=== PATIENT | male | born 1940 | race Caucasian/White ===

== ENCOUNTER 2017-11-05 10:24 | Observation (INO) | payer MEDICARE, OTHER ==
[2017-11-05] MEDS ORDERED: ASPIRIN 81 MG TAB.CHEW ONE (10:32)
[2017-11-05] MEDS ORDERED: NITROGLYCERIN 0.4 MG/TAB BTL SL PRN (10:32)
[2017-11-05] MEDS ORDERED: ASPIRIN 81 MG TAB.CHEW PO ONE (10:32)
--- NOTE | 2017-11-05 10:48 | ERNOTE ---
Chest Pain/Cardiac HPI Date of Service: 11/05/17 Time Seen by Provider: 11/05/17 10:29 Source: patient Exam Limitations: no limitations Immunizations: IMMUNIZATION HX Immunizations Up to Date Yes History of Influenza Vaccine Yes Hx Pneumococcal Vaccination Yes Allergies/Adverse Reactions: Allergies codeine phosphate [From Codeine Phosphate Soluble] Allergy (Verified 11/05/17 10 :37) penicillin G Allergy (Verified 11/05/17 10:37) sulfadiazine [Sulfadiazine] Allergy (Verified 11/05/17 10:37) Home Medications: HOME MEDICATIONS Albuterol Sulfate [Ventolin Hfa] 18 gm IH Q4H PRN 11/12/12 [Last Taken Unknown] Atenolol [Tenormin] 25 mg PO DAILY 11/12/12 [Last Taken Unknown] Bimatoprost [Lumigan 0.03% Ophth Solution] 2.5 ml OP DAILY 11/12/12 [Last Taken Unknown] Bupropion HCl [Buproban] 150 mg PO DAILY 11/12/12 [Last Taken Unknown] Cyanocobalamin (Vitamin B-12) [Vitamin B-12] 100 mcg PO DAILY 11/12/12 [Last Taken Unknown] Fluticasone Propionate [Flonase] 16 gm NS BID PRN 11/12/12 [Last Taken Unknown] Fluticasone/Salmeterol [Advair 250-50 Diskus] 1 each IH BID 11/12/12 [Last Taken Unknown] Gabapentin [Gabapentin (Neurontin)] 300 mg PO BID 11/12/12 [Last Taken Unknown] Garlic [Odorless Garlic] 500 mg PO DAILY 11/12/12 [Last Taken Unknown] Multivitamin [Multivitamins] 1 each PO BID 11/12/12 [Last Taken Unknown] [place]-3 Fatty Acids/Fish Oil [[place] 3 1,000 mg Softgel] 1 each PO DAILY [Last Taken Unknown] Pantoprazole Sodium [Protonix] 40 mg PO DAILY 11/12/12 [Last Taken Unknown] Pregabalin [Lyrica] 100 mg PO TID 11/12/12 [Last Taken Unknown] Ubidecarenone [Coenzyme Q10] 100 mg PO DAILY 11/12/12 [Last Taken Unknown] HYDROcodone/ACETAMINOPHEN [[place] 5-325 Tablet] 1 - 2 tab PO QID PRN #30 tab 11/14 [Last Taken Unknown] Von 06/11/15 [Last Taken Unknown] Narrative: Pt. comes in with c/o chest pressure for 5 hours. Pt. states that he was SOB, and diaphoretic as well. Pt. denies any radiation of the pain. Pt. has a hx of anteriolateral VT and was treated medically and also has a hx of COPD which he denies any recent problems of. Pt. denies any alleviating or aggravating factors. Pt. denies any prehospital treatment. Timing: constant, other - improved with nitro Severity/Quality: pressure Location: substernal Chest Pain Radiation: no radiation Activities at Onset: sleep Modifying Factors - Improves: Present: nitroglycerin Modifying Factors - Worsens: Present: nothing Nitro Today/Relief: 0.4 mg x 1, provided by EMS Aspirin Treatment Today: no aspirin today Associated Symptoms: Present: shortness of breath, diaphoresis Prior Chest Pain/Cardiac Workup: Reports: prior chest pain, heart attack, cardiac cath Prior Treatment: Reports: treated by physician Review of Systems - Review of Systems Constitutional: Present: no symptoms reported. Absent: fever, chills, weakness , fatigue, malaise EYE: Present: no symptoms reported ENT: Present: no symptoms reported. Absent: nose pain, nose congestion, nasal drainage, sore throat Respiratory: Present: shortness of breath. Absent: cough, wheezing Cardiology: Present: chest pain. Absent: palpitations, edema Gastrointestinal/Abdominal: Present: no symptoms reported. Absent: nausea, vomiting, diarrhea Genitourinary: Present: no symptoms reported. Absent: frequency, decreased urinary output Musculoskeletal: Present: no symptoms reported. Absent: back pain, joint pain Skin: Present: no symptoms reported. Absent: rash, change in hair/nails Neurological: Present: no symptoms reported. Absent: headache, dizziness/light- headedness, numbness, tingling All Other Systems: All systems neg except as marked - Patient's Past Medical History Patient History - Medical: GERD, Kidney stone Patient History - Cardiac/Respiratory: COPD, Myocardial Infarction Patient History - Cancer: No Hx of Cancer Patient History - Surgical Procedures: No surgical history - Social History Smoking Status: Current every day smoker Have you smoked in the past 12 months: Yes Do you dip or chew tobacco: Yes - Immunizations Immunizations Up to Date: Yes Hx Pneumococcal Vaccination: Yes History of Influenza Vaccine: Yes Physical Exam - Physical Exam General Appearance: Present: wd/wn, alert, no apparent distress Head Exam: Present: normal inspection, no evidence of injury Eye Exam: Normal inspection: bilateral, PERRL: bilateral, EOMI: bilateral Ears, Nose, Throat: Present: normal ENT inspection, normal pharynx Neck: Present: normal inspection, nontender, supple, full range of motion. Absent: lymphadenopathy (R), lymphadenopathy (L) Respiratory: Present: no respiratory distress, normal breath sounds, no accessory muscle use, chest nontender, lungs clear Cardiovascular/Chest: Present: regular rate, rhythm, normal peripheral pulses, systolic murmur Gastrointestinal/Abdominal: Present: normal bowel sounds, nontender, nondistended, soft, no organomegaly, other - corpulent Back Exam: Present: normal inspection, normal range of motion, no CVA tenderness , no vertebral tenderness Extremity Exam: Present: normal inspection, non-tender, normal range of motion, no edema Neurological Exam: Present: alert, oriented, normal mood/affect, no motor/ sensory deficits Skin Exam: Present: normal color, warm/dry. Absent: pallor, skin rash ED Progress - Date and Time Seen: Date and Time: 11/05/17 12:[address] Aldana he accepts pt and he denies any questions or new orders - Results and Orders Patient's Lab Results:: I have reviewed the patient's lab results. Results and Orders: Abnormal Lab Results 11/05/17 11/05/17 11/05/17 Range/Units 10:32 10:40 11:23 WBC 19.1 H (4.0-10.5) K/mm3 RBC 4.23 L (4.7-6.0) M/mm3 Hgb 13.1 L (13.5-18.0) gm/dL Hct 39.1 L (42.0-52.0) % MPV 11.8 H (6.0-9.5) fl Immature Gran % (Auto) 1.00 H (0.001-0.429) % Immature Gran # (Auto) 0.19 H (0.000-0.0310) K/mm3 Neutrophils % 91.6 H (42-75.0) % Lymphocytes % 3.6 L (20-51) % Neutrophils # 17.5 H (1.3-6.0) K/mm3 Lymphocytes # 0.7 L (1.5-3.5) k/mm3 Potassium 5.0 H (3.4-4.6) mmol/L Anion Gap 16.1 H (6.8-13.8) mmol/L Est GFR (Non-Af Amer) 55 L (60-130) mL/min Random Glucose 261 H (70-110) mg/dL Hemoglobin A1c 6.5 H (4.00-6.0) % Pt. receives steroid injection in knee yesterdayfell that this could be contributing to abnormal lab values. - Vital Signs Patient's Vital Signs:: I have reviewed the patient's vital signs. Vital Signs: Vital Signs 11/05/17 10:30 Temperature 37.4 C Pulse Rate 90 Respiratory 18 Rate Blood Pressure 170/76 O2 Sat by Pulse 96 Oximetry - EKG EKG: nonspecific ST T wave changes, changed from - 11/05/2012, other - 1 mm increase in V1 anteriolateral VT hx EKG read: Reviewed by me EKG Comments: Interp by Dr Calderon - X-Ray X-Ray #1 X-Ray: chest Interpretation: Reviewed by me X-ray Comments: chronic changes no acute - Progress/Reassessment Progress:: Unchanged Departure Clinical Impression: Hyperkalemia Chest pain Qualifiers: Chest pain type: other chest pain Qualified Code(s): R07.89 - Other chest pain ; R07.8 - Other chest pain - Departure Disposition: [facility] Condition: Fair
[2017-11-05 10:50] LABS: Hematocrit 39.1 % (42.0-52.0); Hemoglobin 13.1 gm/dL (13.5-18.0); Mean Cell Volume 92.4 fl (78-100); Mean Corpuscular Hgb Conc 33.5 g/dl (32-36); Mean Platelet Volume 11.8 fl (6.0-9.5); Neutrophil # 17.5 K/mm3 (1.3-6.0); Neutrophil % 91.6 % (42-75.0); Platelet Count 206 K/mm3 (150-450); Red Blood Count 4.23 M/mm3 (4.7-6.0); Red Cell Distribution Width 13.2 % (11.5-14.0); White Blood Count 19.1 K/mm3 (4.0-10.5)
[2017-11-05 10:56] LABS: Prothrombin Time (Patient) 9.9 Seconds (9.0-11.0)
[2017-11-05 10:57] LABS: INR 0.99 INR (0.90-1.10); Partial Thrombolplastin Time 24.1 Seconds (24-32)
[2017-11-05 11:02] LABS: Albumin * 3.8 gm/dl (3.4-5.0); Anion Gap 16.1 mmol/L (6.8-13.8); BUN/Creatinine Ratio 17.2 (9.0-21.6); Calcium * 9.3 mg/dL (7.9-10.9); Carbon Dioxide 24.9 mmol/L (24-32.6); Total Protein 7.7 gm/dL (6.2-8.2)
[2017-11-05 11:03] LABS: Bilirubin, Total 0.2 mg/dL (0.0-1.1); Ca. Corrected For Albumin 9.1 mg/dL (8.4-10.2); Troponin I 0.07 ng/ml (0.00-0.10)
[2017-11-05 11:29] LABS: Hemoglobin A1C 6.5 % (4.00-6.0)
[2017-11-05] MEDS ORDERED: SODIUM POLYSTYRENE SULFON/SORB 15 G/60 ML BTL PO ONE ×2 (11:54→11:57)
[2017-11-05] MEDS ORDERED: NORMAL SALINE 1,000 ML IV ONE (11:58)
[2017-11-05] MEDS ORDERED: SODIUM POLYSTYRENE SULFON/SORB 15 G/60 ML BTL ONE (12:04)
[2017-11-05] MEDS ORDERED: ALBUTEROL SULFATE 2.5 MG/0.5 ML VIAL.NEB IH PRN ×2 (13:14→17:39)
[2017-11-05] MEDS ORDERED: HYDROcodone/ACETAMINOPHEN 1 EACH TABLET PO PRN (13:14)
--- NOTE | 2017-11-05 13:14 | HP ---
Chief Complaint - Chief Complaint Date of Service: 11/05/17 Time of Service: 13:02 Chief Complaint: chest pain History of Present Illness: Nick Guillen, is a 76-year-old white male, with previous medical history of myocardial infarction, diabetes mellitus type 2, peripheral neuropathy, hyperlipidemia, gastroesophageal reflux disease who was admitted on 11/05/2017 because of chest pain. Early this morning, the patient went deer hunting and when he came back to the house he felt chest pain.He described it as pressure- like, 5/10, nonradiating and not associated with diaphoresis or nausea or vomiting. He thought it was just because his blood sugar was high as he just had a steroid injection of his knee the day before. When he took his blood pressure it was 190/88 and so he called EMS. They gave him nitroglycerin and his chest pain went away by the time he got to the ER. His first set of cardiac enzyme was within normal limits. His EKG showed normal sinus rhythm with anteroseptal myocardial infarction of indeterminate name . He was then admitted under our chest pain protocol and is currently chest pain-free. - Patient's Past Medical History Patient History - Medical: GERD, Kidney stone Patient History - Cardiac/Respiratory: COPD, Myocardial Infarction Patient History - Cancer: No Hx of Cancer Patient History - Surgical Procedures: No surgical history - Social History Smoking Status: Current every day smoker Have you smoked in the past 12 months: Yes Do you dip or chew tobacco: Yes - Immunizations Immunizations Up to Date: Yes Hx Pneumococcal Vaccination: Yes History of Influenza Vaccine: Yes Review Of Systems (GEN) - Review of Systems Generalized/Overall Review: Absent: Weakness, Chills, Fever Respiratory: Absent: Cough, Shortness of Breath, Orthopnea Cardiac: Present: Chest Pain - resolved now. Absent: Edema, Palpitations Abdominal: Absent: Nausea, Vomiting Genitourinary: Absent: Urgency, Frequency Musculoskeletal: Present: Joint Pain Immunizations: IMMUNIZATION HX Immunizations Up to Date Yes History of Influenza Vaccine Yes Hx Pneumococcal Vaccination Yes Allergies/Adverse Reactions: Allergies Allergy/AdvReac Type Severity Reaction Status Date / Time codeine phosphate Allergy Verified 11/05/17 10:37 [From Codeine Phosphate Soluble] penicillin G Allergy Verified 11/05/17 10:37 sulfadiazine [Sulfadiazine] Allergy Verified 11/05/17 10:37 Home Medications: HOME MEDICATIONS Albuterol Sulfate [Ventolin Hfa] 18 gm IH Q4H PRN 11/12/12 [Last Taken Unknown] Atenolol [Tenormin] 25 mg PO DAILY 11/12/12 [Last Taken Unknown] Bimatoprost [[place] 0.03% Ophth Solution] 2.5 ml OP DAILY 11/12/12 [Last Taken Unknown] Bupropion HCl [Buproban] 150 mg PO DAILY 11/12/12 [Last Taken Unknown] Cyanocobalamin (Vitamin B-12) [Vitamin B-12] 100 mcg PO DAILY 11/12/12 [Last Taken Unknown] Fluticasone Propionate [Flonase] 16 gm NS BID PRN 11/12/12 [Last Taken Unknown] Fluticasone/Salmeterol [Advair 250-50 Diskus] 1 each IH BID 11/12/12 [Last Taken Unknown] Gabapentin [Gabapentin (Neurontin)] 300 mg PO BID 11/12/12 [Last Taken Unknown] Garlic [Odorless Garlic] 500 mg PO DAILY 11/12/12 [Last Taken Unknown] Multivitamin [Multivitamins] 1 each PO BID 11/12/12 [Last Taken Unknown] [place]-3 Fatty Acids/Fish Oil [[place] 3 1,000 mg Softgel] 1 each PO DAILY [Last Taken Unknown] Pantoprazole Sodium [Protonix] 40 mg PO DAILY 11/12/12 [Last Taken Unknown] Pregabalin [Lyrica] 100 mg PO TID 11/12/12 [Last Taken Unknown] Ubidecarenone [Coenzyme Q10] 100 mg PO DAILY 11/12/12 [Last Taken Unknown] HYDROcodone/ACETAMINOPHEN [[place] 5-325 Tablet] 1 - 2 tab PO QID PRN #30 tab 11/14 [Last Taken Unknown] Zpack 06/11/15 [Last Taken Unknown] Exam - Exam Vital Signs: Vital Signs - Last Taken Temp 36.4 C L 11/05/17 12:29 Pulse 59 L 11/05/17 12:29 Resp 17 11/05/17 12:29 BP 165/66 11/05/17 12:29 Pulse Ox 96 11/05/17 12:29 Constitutional: Present: Alert, Oriented x3, Cooperative ENT Exam: Present: hearing grossly normal Eye Exam: bilateral eye: normal inspection, PERRL, EOMI Neck: Present: supple Respiratory: Present: normal breath sounds, No rales, No wheezing Cardiovascular/Chest: Present: regular rate, rhythm, no JVD, no murmur Abdomen: Present: Normal bowel sounds, soft, nontender, nondistended Extremity: Present: no pedal edema, no calf tenderness Diagnostic Studies: Laboratory Results WBC 19.1 K/mm3 (4.0-10.5) H 11/05/17 10:40 RBC 4.23 M/mm3 (4.7-6.0) L 11/05/17 10:40 Hgb 13.1 gm/dL (13.5-18.0) L 11/05/17 10:40 Hct 39.1 % (42.0-52.0) L 11/05/17 10:40 MCV 92.4 fl (78-100) 11/05/17 10:40 MCH 31.0 pg (27-31) 11/05/17 10:40 MCHC 33.5 g/dl (32-36) 11/05/17 10:40 RDW 13.2 % (11.5-14.0) 11/05/17 10:40 Plt Count 206 K/mm3 (150-450) 11/05/17 10:40 MPV 11.8 fl (6.0-9.5) H 11/05/17 10:40 Immature Gran % (Auto) 1.00 % (0.001-0.429) H 11/05/17 10:40 Immature Gran # (Auto) 0.19 K/mm3 (0.000-0.0310) H 11/05/17 10:40 Neutrophils % 91.6 % (42-75.0) H 11/05/17 10:40 Lymphocytes % 3.6 % (20-51) L 11/05/17 10:40 Monocytes % 3.7 % (0.0-9) 11/05/17 10:40 Eosinophils % 0.0 % (0.0-3.0) 11/05/17 10:40 Basophils % 0.1 % (0.0-1.0) 11/05/17 10:40 Nucleated RBC % 0.0 k/mm3 (0-1) 11/05/17 10:40 Neutrophils # 17.5 K/mm3 (1.3-6.0) H 11/05/17 10:40 Lymphocytes # 0.7 k/mm3 (1.5-3.5) L 11/05/17 10:40 Monocytes # 0.7 k/mm3 (0.0-1.0) 11/05/17 10:40 Eosinophils # 0.0 k/mm3 (0.0-0.7) 11/05/17 10:40 Absolute Basophils 0.0 k/mm3 (0.0-0.1) 11/05/17 10:40 PT 9.9 Seconds (9.0-11.0) 11/05/17 10:32 INR (Anticoag Therapy) 0.99 INR (0.90-1.10) 11/05/17 10:32 PTT ([place]) 24.1 Seconds (24-32) 11/05/17 10:32 Sodium 138 mmol/L (132-142) 11/05/17 10:32 Plasma Sodium 141 mmol/L (130-142) 11/05/17 10:32 Potassium 5.0 mmol/L (3.4-4.6) H 11/05/17 10:32 Chloride 102 mmol/L (97-106) 11/05/17 10:32 Carbon Dioxide 24.9 mmol/L (24-32.6) 11/05/17 10:32 Anion Gap 16.1 mmol/L (6.8-13.8) H 11/05/17 10:32 BUN 23 mg/dL (6-23) 11/05/17 10:32 Creatinine 1.34 mg/dL (0.4-1.4) 11/05/17 10:32 Est GFR (Non-Af Amer) 55 mL/min (60-130) L 11/05/17 10:32 BUN/Creatinine Ratio 17.2 (9.0-21.6) 11/05/17 10:32 Random Glucose 261 mg/dL (70-110) H 11/05/17 10:32 Mean Blood Glucose 130 mg/dL 11/05/17 11:23 Hemoglobin A1c 6.5 % (4.00-6.0) H 11/05/17 11:23 Calcium 9.3 mg/dL (7.9-10.9) 11/05/17 10:32 Calcium Adj for Albumin 9.1 mg/dL (8.4-10.2) 11/05/17 10:32 Total Bilirubin 0.2 mg/dL (0.0-1.1) 11/05/17 10:32 AST 15 U/L (0-48) 11/05/17 10:32 ALT 26 U/L (19-67) 11/05/17 10:32 Alkaline Phosphatase 111 U/L (50-170) 11/05/17 10:32 Troponin I 0.070 ng/ml (0.00-0.10) 11/05/17 10:32 Total Protein 7.7 gm/dL (6.2-8.2) 11/05/17 10:32 Albumin 3.8 gm/dl (3.4-5.0) 11/05/17 10:32 Assessment/Plan - Assessment/Plan (1) Chest pain Assessment: will do serial EKG and troponin. blayne matthews schedule him a nuclear pharmacologic stress because of his multiple risk factors. Problem: Acute Qualifiers: Chest pain type: other chest pain Qualified Code(s): R07.89 - Other chest pain; R07.8 - Other chest pain (2) Hyperkalemia Problem: Acute (3) Diabetes mellitus type 2 in obese Problem: Chronic (4) Hypertension Problem: Chronic Qualifiers: Hypertension type: essential hypertension Qualified Code(s): I10 - Essential (primary) hypertension (5) Hyperlipidemia Problem: Chronic
[2017-11-05 16:59] LABS: Potassium 4.3 mmol/L (3.4-4.6); Troponin I 0.088 ng/ml (0.00-0.10)
[2017-11-05] MEDS ORDERED: PREGABALIN 100 MG PO SCH (17:00)
[2017-11-05] MEDS ORDERED: BIMATOPROST 25 DROP BTL OP SCH (21:00)
[2017-11-05] MEDS ORDERED: GABAPENTIN 300 MG CAPSULE PO SCH (21:00)
[2017-11-05] MEDS ORDERED: SIMVASTATIN 20 MG TABLET PO SCH (21:00)
[2017-11-05] MEDS ORDERED: LUMIGAN 0.03% LEFTEYE SCH (21:00)
[2017-11-05] MEDS: FLUTICASONE/SALMETEROL 14 PUFF DISK.W.DEV IH SCH (23:13)
[2017-11-05] MEDS: GABAPENTIN 300 MG CAPSULE PO SCH (23:14)
[2017-11-05] MEDS: CLOBETASOL PROPIONATE 15 APPL TUBE TP SCH (23:15)
[2017-11-05] MEDS: PANTOPRAZOLE SODIUM 40 MG TABLET.EC PO SCH (23:15)
[2017-11-05] MEDS: METOPROLOL TARTRATE 25 MG TABLET PO SCH (23:20)
[2017-11-06] MEDS ORDERED: PANTOPRAZOLE SODIUM 40 MG TABLET.EC PO SCH (07:00)
[2017-11-06 07:17] VITALS: BP 153/52
[2017-11-06] MEDS: PANTOPRAZOLE SODIUM 40 MG TABLET.EC PO SCH (07:19)
--- NOTE | 2017-11-06 07:49 | DS ---
(1) Diabetes mellitus type 2 in obese Problem: Chronic (2) Hyperlipidemia Problem: Chronic (3) Hypertension Problem: Chronic Qualifiers: Hypertension type: essential hypertension Qualified Code(s): I10 - Essential (primary) hypertension Description of Stay: Nick Guillen, is a 76-year-old white male, with previous medical history of myocardial infarction, diabetes mellitus type 2, peripheral neuropathy, hyperlipidemia, gastroesophageal reflux disease who was admitted on 11/05/2017 because of chest pain. Yesterday the patient went deer hunting and when he came back to the house he felt chest pain.He described it as pressure-like, 5/10 , non radiating and not associated with diaphoresis or nausea or vomiting. He thought it was just because his blood sugar was high as he just had a steroid injection of his knee the day before. When he took his blood pressure it was 190/88 and so he called EMS. They gave him nitroglycerin and his chest pain went away by the time he got to the ER. His first set of cardiac enzyme was within normal limits. His EKG showed normal sinus rhythm with anteroseptal myocardial infarction of indeterminate name . He was then admitted under our chest pain protocol and is currently chest pain-free. During this adm pt remain medically stable, cardiac markers were negative and he denies further chest pain. Pt has a strong cardiac history, he his agreeable and plan for out-pt stress test and follow up with PCP in 3-7 days. Procedures Performed: none Discharge Disposition: Home self care Disposition: Home self-care Condition: Fair Discharge Activity: Activity as tolerated Discharge Diet: Consistent carbs, Low salt, Low fat/chol Problem Oriented Discharge Instructions to Patient/Family: Nonspecific Chest Pain, [id number] Additional Patient Instructions (free text): [facility] Pharmacological [facility] Test scheduled on 11-07-17 @ 11:00am. , wear comfortable cloths , nothing to eat 4 hours prior to the exam, no caffeine 12 hours prior to testing. Bring list or meds with you to testing do not take at home. Please arrive @ 10:30 to register ... Follow up with your PCP next week. on 11-13-17 @ 11:00am. with Luis Neff [facility]. Prescriptions (Any new or edited meds): Aspirin [Aspirin EC] 81 mg PO DAILY #30 tablet. Atenolol [Tenormin] 25 mg PO DAILY #30 tablet buPROPion HCL [Wellbutrin Sr, Zyban] 150 mg PO DAILY #30 tablet. Fluticasone/Salmeterol [Advair 250-50 Diskus] 1 puff IH BID #1 disk.w.dev Complete Home Medications List: Complete Home Medication List: Albuterol Sulfate [Albuterol Sulfate 2.5 MG/0.5ML] 1 vial IH QID PRN 11/05/17 [place] 1 tab PO BID 11/05/17 Bimatoprost [[place]umigan] 1 drop OP HS 11/05/17 Cholecalciferol (Vitamin D3) [Vitamin D3] 1,000 unit PO DAILY 11/05/17 Cinnamon Bark [Cinnamon] 1,000 mg PO QAM 11/05/17 Cinnamon Bark [Cinnamon] 500 mg PO QPM 11/05/17 Clobetasol Propionate [[place] 0.05% Ointment] 1 appl TP BID 11/05/17 Cyanocobalamin (Vitamin B-12) [Vitamin B-12] 500 mcg PO DAILY 11/05/17 Gabapentin 900 mg PO BID 11/05/17 Garlic 1,000 mg PO DAILY 11/05/17 Gemfibrozil [Lopid] 600 mg PO DAILY 11/05/17 Metoprolol Tartrate [Lopressor] 12.5 mg PO BID 11/05/17 Nattokinase 1 tab PO BID 11/05/17 [place]-3/Dha/Epa/Fish Oil [[place] 3 500 Softgel] 1 each PO DAILY 11/05/17 Pantoprazole Sodium [Protonix] 40 mg PO BID 11/05/17 Simvastatin 20 mg PO HS 11/05/17 Ubidecarenone [Coenzyme Q10] 100 mg PO DAILY 11/05/17 metFORMIN HCL [Metformin HCl] 500 mg PO DAILY 11/05/17 Aspirin [Aspirin EC] 81 mg PO DAILY #30 tablet. 11/06/17 Atenolol [Tenormin] 25 mg PO DAILY #30 tablet 11/06/17 Fluticasone/Salmeterol [[place]air 250-50 Diskus] 1 puff IH BID #1 disk.w.dev buPROPion HCL [Wellbutrin Sr, Zyban] 150 mg PO DAILY #30 tablet.sa 11/06/17 Amb Orders for Discharge: Nuc Pharmacological Stress Time Frame: 11/07/17, Facility: [facility], Location: [facility]
[2017-11-06] MEDS ORDERED: buPROPion HCL 150 MG TABLET.SA PO SCH (09:00)
[2017-11-06] MEDS ORDERED: metFORMIN HCL 500 MG TABLET PO SCH (09:00)
[2017-11-06] MEDS ORDERED: CHOLECALCIFEROL 1,000 UNIT CAPSULE PO SCH (09:00)
[2017-11-06] MEDS ORDERED: CYANOCOBALAMIN 1,000 MCG TABLET PO SCH ×2 (09:00)
[2017-11-06] MEDS ORDERED: ATENOLOL 25 MG TABLET PO SCH (09:00)
[2017-11-06] MEDS ORDERED: GEMFIBROZIL 600 MG TABLET PO SCH (09:00)
[2017-11-06] MEDS ORDERED: BIMATOPROST 25 DROP BTL LEFTEYE SCH (09:00)
[2017-11-06] MEDS: FLUTICASONE/SALMETEROL 14 PUFF DISK.W.DEV IH SCH (09:16)
[2017-11-06] MEDS: GABAPENTIN 300 MG CAPSULE PO SCH (09:17)
[2017-11-06] MEDS: CLOBETASOL PROPIONATE 15 APPL TUBE TP SCH (09:18)
[2017-11-06] MEDS: METOPROLOL TARTRATE 25 MG TABLET PO SCH (09:23)
== END 2017-11-06 09:41 | disposition home or self-care (01) ==
LOC: ER 10:24 → MS 12:00
PROVIDERS: ADMIT Internal Medicine; ATTEND Internal Medicine
DX: R07.9 Chest pain, unspecified (principal); I10 Essential (primary) hypertension; E11.42 Type 2 diabetes mellitus with diabetic polyneuropathy; E66.9 Obesity, unspecified; Z68.30 Body mass index [BMI] 30.0-30.9, adult; J44.9 Chronic obstructive pulmonary disease, unspecified; F17.200 Nicotine dependence, unspecified, uncomplicated; K21.9 Gastro-esophageal reflux disease without esophagitis; E78.5 Hyperlipidemia, unspecified
CPT/HCPCS: 36415; 71020; 80053; 83036; 84132; 84484; 85025; 85610; 85730; 93005; 94660; 99285; G0378

== ENCOUNTER 2017-12-18 17:27 | Emergency (ER) | payer MEDICARE, OTHER ==
[2017-12-18 17:35] VITALS: BP 119/57
[2017-12-18] MEDS ORDERED: ALBUTEROL SULFATE/IPRATROPIUM 3 ML NEBU IH ONE ×2 (17:50→18:03)
--- NOTE | 2017-12-18 17:53 | ERNOTE ---
Medical Problem HPI - General Chief Complaint: Flu Symptoms Time Seen by Provider: 12/18/17 17:37 Source: patient, family Exam Limitations: no limitations - Immun/Allergies/Home Medications Immunizations: IMMUNIZATION HX Immunizations Up to Date Yes History of Influenza Vaccine Yes Hx Pneumococcal Vaccination Yes Allergies/Adverse Reactions: Allergies codeine phosphate [From Codeine Phosphate Soluble] Allergy (Verified 11/05/17 13 :16) penicillin G Allergy (Verified 11/05/17 13:16) sulfadiazine [Sulfadiazine] Allergy (Verified 11/05/17 13:16) Home Medications: HOME MEDICATIONS Albuterol Sulfate [Albuterol Sulfate 2.5 MG/0.5ML] 1 vial IH QID PRN 11/05/17 [ Last Taken Unknown] [place] 1 tab PO BID 11/05/17 [Last Taken Unknown] Bimatoprost [Lumigan] 1 drop OP HS 11/05/17 [Last Taken Unknown] Cholecalciferol (Vitamin D3) [Vitamin D3] 1,000 unit PO DAILY 11/05/17 [Last Taken Unknown] Cinnamon Bark [Cinnamon] 1,000 mg PO QAM 11/05/17 [Last Taken Unknown] Cinnamon Bark [Cinnamon] 500 mg PO QPM 11/05/17 [Last Taken Unknown] Clobetasol Propionate [Temovate 0.05% Ointment] 1 appl TP BID 11/05/17 [Last Taken Unknown] Cyanocobalamin (Vitamin B-12) [Vitamin B-12] 500 mcg PO DAILY 11/05/17 [Last Taken Unknown] Gabapentin 900 mg PO BID 11/05/17 [Last Taken Unknown] Garlic 1,000 mg PO DAILY 11/05/17 [Last Taken Unknown] Gemfibrozil [Lopid] 600 mg PO DAILY 11/05/17 [Last Taken Unknown] Metoprolol Tartrate [Lopressor] 12.5 mg PO BID 11/05/17 [Last Taken Unknown] Nattokinase 1 tab PO BID 11/05/17 [Last Taken Unknown] [place]-3/Dha/Epa/Fish Oil [[place] 3 500 Softgel] 1 each PO DAILY 11/05/17 [Last Taken Unknown] Pantoprazole Sodium [Protonix] 40 mg PO BID 11/05/17 [Last Taken Unknown] Simvastatin 20 mg PO HS 11/05/17 [Last Taken Unknown] Ubidecarenone [Coenzyme Q10] 100 mg PO DAILY 11/05/17 [Last Taken Unknown] metFORMIN HCL [Metformin HCl] 500 mg PO DAILY 11/05/17 [Last Taken Unknown] Aspirin [Aspirin EC] 81 mg PO DAILY #30 tablet. 11/06/17 [Last Taken Unknown] Atenolol [Tenormin] 25 mg PO DAILY #30 tablet 11/06/17 [Last Taken Unknown] Fluticasone/Salmeterol [Advair 250-50 Diskus] 1 puff IH BID #1 disk.w.dev [Last Taken Unknown] buPROPion HCL [Wellbutrin Sr, Zyban] 150 mg PO DAILY #30 tablet.sa 11/06/17 [ Last Taken Unknown] Doxycycline Monohydrate 100 mg PO BID #20 tablet 12/18/17 [Last Taken Unknown] - History of Present History Narrative: Patient developed a fairly high fever this morning, states it was up to 103 and he was having body aches and chills. They also complain of a cough but no sputum. Timing: intermittent Severity: moderate Review of Systems - Review of Systems Constitutional: Present: See HPI EYE: Present: no symptoms reported ENT: Present: no symptoms reported Respiratory: Present: See HPI, wheezing Cardiology: Present: no symptoms reported Gastrointestinal/Abdominal: Present: no symptoms reported Genitourinary: Present: no symptoms reported Musculoskeletal: Present: no symptoms reported Skin: Present: no symptoms reported Neurological: Present: no symptoms reported Endocrine: Present: no symptoms reported Hematologic/Lymphatic: Present: no symptoms reported Psych: Present: no symptoms reported - Patient's Past Medical History Patient History - Medical: Diabetes Type 2, GERD, Kidney stone Patient History - Cardiac/Respiratory: Bronchitis, COPD, Myocardial Infarction, Pneumonia Patient History - Cancer: No Hx of Cancer Patient History - Surgical Procedures: Cataracts, Orthopedic Patient History - Other: None - Family History Mother Family History - Medical: Glaucoma Family History - Cardiac/Respiratory: No pertinent hx Family History - Cancer: No pertinent family hx Father Family History - Medical: , Alzheimer's Disease Family History - Cardiac/Respiratory: No pertinent hx Family History - Cancer: No pertinent family hx Brother Family History - Medical: Diabetes Type 2 Family History - Cardiac/Respiratory: Asthma Family History - Cancer: Non Hodgkins Lymphoma - Social History Living Situations: home Abuse History: No History of abuse Psych History: No pertinent hx Smoking Status: Current every day smoker Alcohol Use: none Drug Use: none - Immunizations Immunizations Up to Date: Yes Hx Pneumococcal Vaccination: Yes History of Influenza Vaccine: Yes Physical Exam - Physical Exam General Appearance: Present: wd/wn, alert, mild distress Head Exam: Present: normal inspection, no evidence of injury Eye Exam: Normal inspection: bilateral, PERRL: bilateral Ears, Nose, Throat: Present: normal ENT inspection, H, normal pharynx Neck: Present: normal inspection, nontender Respiratory: Present: no respiratory distress, no accessory muscle use, chest nontender, wheezing, other - fine course breath sounds Cardiovascular/Chest: Present: regular rate, rhythm, no murmur, normal peripheral pulses Gastrointestinal/Abdominal: Present: normal bowel sounds, nontender, nondistended, soft, no organomegaly Rectal Exam: Present: deferred Back Exam: Present: normal inspection, normal range of motion Extremity Exam: Present: normal inspection, non-tender, no edema, normal range of motion Neurological Exam: Present: alert, oriented, normal mood/affect Skin Exam: Present: normal color, warm/dry Lymphatic Exam: Present: no adenopathy ED Progress - Results and Orders Patient's Lab Results:: I have reviewed the patient's lab results. - Vital Signs Patient's Vital Signs:: I have reviewed the patient's vital signs. Vital Signs: Vital Signs 12/18/17 17:30 Temperature 36.2 C L Pulse Rate 98 Respiratory 22 H Rate Blood Pressure 119/57 O2 Sat by Pulse 96 Oximetry - X-Ray X-Ray #1 X-Ray: chest Interpretation: Reviewed by me - Progress/Reassessment Chief Complaint: Flu Symptoms Plan - Plan Plan: The patient does not appear to have influenza he certainly does appear to have an exacerbation of COPD with bronchitis. Patient be started on doxycycline and albuterol inhaler and he will follow-up with his family physician next week. Departure Clinical Impression: COPD (chronic obstructive pulmonary disease) with acute bronchitis - Departure Disposition: Home self-care Condition: Good Instructions: Chronic Obstructive Pulmonary Disease Exacerbation, [id number] Prescriptions: Doxycycline Monohydrate 100 mg PO BID #20 tablet
== END 2017-12-18 18:31 | disposition home or self-care (01) ==
LOC: ER 17:27
DX: J44.0 Chronic obstructive pulmonary disease with (acute) lower respiratory infection (principal); J20.9 Acute bronchitis, unspecified; Z87.442 Personal history of urinary calculi; I25.2 Old myocardial infarction; F17.200 Nicotine dependence, unspecified, uncomplicated